=== PATIENT | male | born 1995 | race Caucasian/White ===

== ENCOUNTER 2017-07-17 09:19 | Emergency (ER) | payer OTHER ==
[~2017-07-17] VITALS: Ht 185.4 cm; Wt 86.0 kg
[~2017-07-17 09:19] MED LIST: IBUP-1277 PO; LEVO50TA PO; PENI-73 PO
[2017-07-17 09:26] VITALS: Ht 185.4 cm; Wt 86.0 kg
[2017-07-17] MEDS ORDERED: SODIUM CHLORIDE 0.9% 1000ML 1,000 ML IV STA (09:34)
[2017-07-17] MEDS ORDERED: ONDANSETRON INJ 2 MG/ML 2 ML VIAL IV STA ×2 (09:48→11:56)
[2017-07-17] MEDS ORDERED: SODIUM CHLORIDE 0.9% 1000ML 2,000 ML IV STA (09:49)
[2017-07-17 10:13] LABS: BASO % 0.1 %; BASO ABS # 0.02 K/uL (0-0.2); EOS % 0.1 %; EOS ABS # 0.01 K/uL (0-0.5); HEMOGLOBIN 15.1 g/dL (14.0-18.0); IG# 0.05 K/uL (0.00-0.02); LYMPH % 5.1 %; LYMPH ABS # 0.89 K/uL (1.2-3.4); MEAN CELL VOLUME 84.5 fL (80-100); MEAN CORPUSCULAR HEMOGLOBIN 29.7 pg (25-34); MEAN CORPUSCULAR HGB CONC 35.1 g/dl (32-36); MEAN PLATELET VOLUME 9.4 fL (7.4-10.4); MONO % 6.9 %; MONO ABS # 1.21 K/uL (0.11-0.59); NEUT % 87.5 %; NEUT ABS # 15.24 K/uL (1.4-6.5); PLATELET COUNT 262 K/uL (130-400); RED CELL DISTRIBUTION WIDTH CV 13.5 % (11.5-14.5); RED CELL DISTRIBUTION WIDTH SD 41.6 fL (36.4-46.3); WHITE BLOOD COUNT 17.42 K/uL (4.8-10.8)
[2017-07-17 10:32] LABS: ALBUMIN 3.8 gm/dl (3.4-5.0); ALT/SGPT 26 U/L (12-78); AST/SGOT 15 U/L (15-37); BLOOD UREA NITROGEN 15 mg/dl (7-18); CALCIUM 9.1 mg/dl (8.5-10.1); CARBON DIOXIDE 22 mmol/L (21-32); CREATININE 1.26 mg/dl (0.60-1.40); GLUCOSE 111 mg/dl (70-99); LIPASE 75 U/L (73-393); POTASSIUM 3.3 mmol/L (3.5-5.1); SODIUM 135 mmol/L (136-145)
[2017-07-17 10:43] LABS: ALKALINE PHOSPHATASE 104 U/L (45-117); TOTAL PROTEIN 8.5 gm/dl (6.4-8.2)
--- NOTE | 2017-07-17 11:13 | EMERGENCY ROOM VISIT NOTE ---
History Report prepared by Rossi: Aryan Matias Under the Supervision of: Dr. Tyler Umaña M.D. First contact with patient: 09:34 Chief Complaint: VOMITING Stated Complaint: STOMACH FLU Nursing Triage Summary: pt reports since saturday he has had nausea, vomitting and generalized pain. pt reports he was seen at [facility] yesterday and was told to come to ed if not getting any better. pt reports "i feel worse and i think i am just so dehydrated." History of Present Illness The patient is a 21 year old male who presents to the Emergency Room with complaints of multiple episodes of intermittent vomiting that began two days ago. He has a past medical history of a thyroid disorder and takes Levothyroxine. This weekend, the patient began to feel "weird," but did not have any symptoms at that time. A couple of days ago, the patient presented to [facility] to be evaluated. He was given a nausea medication and was discharged. However, the patient was so fatigued that he did not fill his prescription and went home to sleep. He has not been able to eat or drink anything without vomiting. He is also experiencing some abdominal cramping. He notes that he feels significantly dehydrated. This morning, the patient had a few episodes of short, sharp chest and ear pain, but is not experiencing it currently. Pt denies LOC, headache, fevers, chills, diaphoresis, visual changes , neck pain, breathing difficulties, back pain, melena, hematochezia, urinary symptoms, numbness, weakness, lymphadenopathy, rash, or other complaints. Source of History: patient Onset: two days ago Position: other (GI) Symptom Intensity: Multiple episodes Quality: other (Vomiting) Timing: intermittent Modifying Factors (Worsening): eating, drinking Associated Symptoms: + nausea, + abdominal pain (cramping), + fatigue Note: He feels dehydrated. Review of Systems See HPI for pertinent positives and negatives. A total of ten systems were reviewed and were otherwise negative. Family History Patient reports no known family medical history. Social History Smoking Status: Never Smoker Smokeless Tobacco Use: No Drug Use: none Marital Status: single Housing Status: lives with roommate Occupation Status: [employer] student Current/Historical Medications Scheduled Levothyroxine Sodium (Synthroid), 1 TAB PO DAILY Allergies Coded Allergies: No Known Allergies (Unverified , 07/17/17) Physical Exam Vital Signs Date Time Temp Pulse Resp B/P (MAP) Pulse Ox O2 Delivery O2 Flow Rate FiO2 07/17/17 14:53 38.1 77 18 139/75 97 07/17/17 14:18 38.2 76 16 143/72 96 Room Air 07/17/17 13:14 88 07/17/17 12:27 37.9 92 18 155/83 97 Room Air 07/17/17 10:57 98 18 157/78 97 Room Air 07/17/17 10:08 85 07/17/17 09:26 37.6 95 18 145/67 97 Room Air Physical Exam GENERAL: Awake, alert, uncomfortable-appearing, in no distress HENT: Normocephalic, atraumatic. Oropharynx reveals dry mucous membranes. EYES: Normal conjunctiva. Sclera non-icteric. NECK: Supple. No nuchal rigidity. FROM. No JVD. RESPIRATORY: Clear to auscultation. CARDIAC: Borderline tachycardic rate, normal rhythm. Extremities warm and well perfused. Pulses equal. ABDOMEN: Soft, non-distended. No tenderness to palpation. No rebound or guarding. No masses. RECTAL: Deferred. MUSCULOSKELETAL: Chest examination reveals no tenderness. The back is symmetrical on inspection without obvious abnormality. There is no CVA tenderness to palpation. No joint edema. LOWER EXTREMITIES: Calves are equal size bilaterally and non-tender. No edema. No discoloration. NEURO: Normal sensorium. No sensory or motor deficits noted. SKIN: No rash or jaundice noted. Medical Decision & Procedures ER Provider Diagnostic Interpretation: Radiology results as stated below per my review and radiologist interpretation: ABD/PELVIS IV CONTRAST ONLY CLINICAL HISTORY: 21 years-old Male presenting with vomiting, lower abd pain. TECHNIQUE: Multidetector CT of the abdomen and pelvis was performed after the administration of intravenous contrast. IV contrast: 100 mL of Optiray 320. A dose lowering technique was used consistent with the principles of ALARA (as low as reasonably achievable). COMPARISON: None. CT DOSE (mGy.cm): The estimated cumulative dose is 488.23 mGy.cm. FINDINGS: Pet Care Assistant topogram: Unremarkable. Lung bases: Polygonal solid peripheral 6 mm nodule at the posterior basal right lower lobe (series 3 image 29). Minimal subpleural nodularity at the left lower lobe likely atelectasis. Normal heart size. No pericardial or pleural effusion. Liver: Normal morphology. No liver lesion. Patent hepatic vasculature. Biliary: No intrahepatic or extrahepatic biliary ductal dilatation. Normal gallbladder. Pancreas: Normal. Spleen: Normal. Adrenal glands: Normal. Kidneys and ureters: Normal. No hydronephrosis. Bladder: Incompletely evaluated secondary to underdistention. Pelvic organs: Prostate and seminal vesicles normal. Bowel: Normal appendix. No bowel obstruction. No gross small bowel wall thickening or perienteric inflammatory change. Peritoneal cavity: No free fluid or intraperitoneal gas. Lymph nodes: No enlarged lymph nodes in the abdomen or pelvis. Vasculature: Aorta and IVC patent and normal in caliber. Abdominal wall: Normal. Musculoskeletal: Normal. IMPRESSION: 1. No acute intra-abdominal pathology. 2. Solid 6 mm right lower lobe pulmonary nodule. Follow-up per Elizabeth Society 2017 recommendations below. Please refer to below summary of Fleischner Society 2017 recommendations for follow-up of incidental CT nodules (H Jordin et al. Guidelines for management of incidental pulmonary nodules detected on CT images: From the Fleischner Society 2017. Radiology 2017; 284: 228-243.) SOLID NODULES Single nodule; size < 6 mm * Low risk patients: No routine follow-up * High risk patients: Optional CT at 12 months Single nodule; size 6-8 mm * Low risk patients: CT at 6-12 months, then consider CT at 18-24 months * High risk patients: CT at 6-12 months, then at 18-24 months Single nodule; size > 8 mm * Either low or high risk patients: Considered CT at 3 months, PET/CT, or tissue sampling Multiple nodules; size < 6 mm * Low risk patients: No routine follow up * High risk patients: Optional CT at 12 months Multiple nodules; size 6-8 mm * Low risk patients: CT at 3-6 months, then consider CT at 18-24 months * High risk patients: CT at 3-6 months, then at 18-24 months Multiple nodules; size > 8 mm * Low risk patients: CT at 3-6 months, then consider at 18-24 months * High risk patients: CT at 3-6 months, then at 18-24 months Note: These guidelines apply to incidental nodules. These guidelines do not apply to patients younger than 35 years, immunocompromised patients, or patients with cancer. * Low risk patients: Minimal or absent history of smoking and/or other known risk factors * High risk patients: History of smoking, exposure to other carcinogens, emphysema, fibrosis, upper lobe location, family history of lung cancer, etc. * If a nodule up to 8 mm is partly solid or is ground glass, further follow-up is required after 24 months to exclude possible slow growing adenocarcinoma. SUBSOLID NODULES Single ground-glass nodule * Nodule size < 6 mm: No routine follow-up * Nodule size > or = 6 mm: CT at 6-12 months to confirm persistence, then CT every 2 years until 5 years Single part-solid nodule * Nodule size < 6 mm: No routine follow-up * Nodules size > or = 6 mm: CT at 3-6 months to confirm persistence. If unchanged and solid component remains < 6 mm, annual CT should be performed for 5 years Multiple nodules * Nodule size < 6 mm: CT at 3-6 months. If stable, consider CT at 2 and 4 years. * Nodules size > or = 6 mm: CT at 3-6 months. Subsequent management based on the most suspicious nodule(s) Electronically signed by: Carlos A Torres M.D. 07/17/2017 1:18 PM Dictated Date/Time: 07/17/2017 1:13 PM Laboratory Results 07/17/17 09:54 Red Blood Count 5.09, Mean Corpuscular Volume 84.5, Mean Corpuscular Hemoglobin 29.7, Mean Corpuscular Hemoglobin Concent 35.1, Mean Platelet Volume 9.4, Neutrophils (%) (Auto) 87.5, Lymphocytes (%) (Auto) 5.1, Monocytes (%) (Auto) 6.9, Eosinophils (%) (Auto) 0.1, Basophils (%) (Auto) 0.1, Neutrophils # (Auto) 15.24, Lymphocytes # (Auto) 0.89, Monocytes # (Auto) 1.21, Eosinophils # (Auto) 0.01, Basophils # (Auto) 0.02 07/17/17 09:54 Test 07/17/17 09:54 07/17/17 11:08 White Blood Count 17.42 K/uL (4.8-10.8) Red Blood Count 5.09 M/uL (4.7-6.1) Hemoglobin 15.1 g/dL (14.0-18.0) Hematocrit 43.0 % (42-52) Mean Corpuscular Volume 84.5 fL (80-100) Mean Corpuscular Hemoglobin 29.7 pg (25-34) Mean Corpuscular Hemoglobin Concent 35.1 g/dl (32-36) Platelet Count 262 K/uL (130-400) Mean Platelet Volume 9.4 fL (7.4-10.4) Neutrophils (%) (Auto) 87.5 % Lymphocytes (%) (Auto) 5.1 % Monocytes (%) (Auto) 6.9 % Eosinophils (%) (Auto) 0.1 % Basophils (%) (Auto) 0.1 % Neutrophils # (Auto) 15.24 K/uL (1.4-6.5) Lymphocytes # (Auto) 0.89 K/uL (1.2-3.4) Monocytes # (Auto) 1.21 K/uL (0.11-0.59) Eosinophils # (Auto) 0.01 K/uL (0-0.5) Basophils # (Auto) 0.02 K/uL (0-0.2) RDW Standard Deviation 41.6 fL (36.4-46.3) RDW Coefficient of Variation 13.5 % (11.5-14.5) Immature Granulocyte % (Auto) 0.3 % Immature Granulocyte # (Auto) 0.05 K/uL (0.00-0.02) Anion Gap 10.0 mmol/L (3-11) Est Creatinine Clear Calc Drug Dose 103.0 ml/min Estimated GFR () 92.6 Estimated GFR (Non- 79.9 BUN/Creatinine Ratio 12.3 (10-20) Calcium Level 9.1 mg/dl (8.5-10.1) Total Bilirubin 0.8 mg/dl (0.2-1) Direct Bilirubin 0.2 mg/dl (0-0.2) Aspartate Amino Transf (AST/SGOT) 15 U/L (15-37) Alanine Aminotransferase (ALT/SGPT) 26 U/L (12-78) Alkaline Phosphatase 104 U/L (45-117) Troponin I < 0.015 ng/ml (0-0.045) Total Protein 8.5 gm/dl (6.4-8.2) Albumin 3.8 gm/dl (3.4-5.0) Lipase 75 U/L (73-393) Thyroid Stimulating Hormone (TSH) 1.270 uIu/ml (0.300-4.500) Urine Color DK YELLOW Urine Appearance CLEAR (CLEAR) Urine pH 8.5 (4.5-7.5) Urine Specific [place] 1.027 (1.000-1.030) Urine Protein NEG (NEG) Urine Glucose (UA) NEG (NEG) Urine Ketones 1+ (NEG) Urine Occult Blood NEG (NEG) Urine Nitrite NEG (NEG) Urine Bilirubin NEG (NEG) Urine Urobilinogen POS (NEG) Urine Leukocyte Esterase SMALL (NEG) Urine WBC (Auto) 1-5 /hpf (0-5) Urine RBC (Auto) 0-4 /hpf (0-4) Urine Hyaline Casts (Auto) 1-5 /lpf (0-5) Urine Epithelial Cells (Auto) 20-30 /lpf (0-5) Urine Bacteria (Auto) NEG (NEG) Laboratory results reviewed by me Medications Administered Medications (Trade) Dose Ordered Sig/Joaquín Route Start Time Stop Time Status Last Admin Dose Admin Ondansetron HCl (Zofran Inj) 4 mg NOW STAT IV 07/17/17 09:48 07/17/17 09:49 DC 07/17/17 09:58 4 MG Sodium Chloride 2,000 ml @ 999 mls/hr Q2H1M STAT IV 07/17/17 09:49 07/17/17 11:49 DC 07/17/17 09:58 999 MLS/HR Ketorolac Tromethamine (Toradol Inj) 15 mg NOW STAT IV 07/17/17 11:56 07/17/17 11:57 DC 07/17/17 12:16 15 MG Ondansetron HCl (Zofran Inj) 4 mg NOW STAT IV 07/17/17 11:56 07/17/17 11:57 DC 07/17/17 11:56 4 MG Acetaminophen (Tylenol Tab) 1,000 mg NOW STAT PO 07/17/17 14:34 07/17/17 14:35 DC 07/17/17 14:49 1,000 MG Promethazine HCl (Phenergan 25MG Home Pack) 1 homepack UD ONCE PO 07/17/17 14:45 07/17/17 14:46 DC 07/17/17 14:49 1 HOMEPACK ECG Indication: vomiting Rate (beats per minute): 65 Rhythm: sinus rhythm, other (with sinus arrhythmia) Findings: RBBB (incomplete), no acute ischemic change, no ectopy, other (LVH) Change: Patient's electrocardiogram was interpreted by me. ED Course 0934: The patient was evaluated in room B5. A complete history and physical exam was performed. 0934: Ordered Sodium Chloride 1000 ml @ 999 mls/hr IV 0948: Ordered Zofran Inj 4 mg IV 0949: Ordered Sodium Chloride 2000 ml @ 999 mls/hr IV 1156: Ordered Zofran Inj 4 mg IV, Toradol Inj 15 mg IV 1247: Upon reevaluation, the patient is feeling better. He is getting ready to go to radiology. 1434: Ordered Tylenol Tab 1000 mg PO 1445: Ordered Promethazine HCl 1 homepack PO 1455: I reevaluated the patient. Discussed results and discharge instructions: He verbalized understanding and agreement. The patient is ready for discharge. Medical Decision Triage Nursing notes reviewed and agree them. The patient's history was concerning for nausea, vomiting, and abdominal pain. Differential diagnosis: Etiologies such as gastroenteritis, food borne illness, infections, appendicitis , diverticulitis, inflammatory bowel disease, GI bleed, biliary pathology, as well as others were entertained. Physical examination findings: As above. Benign abdomen. No peritoneal findings. ER treatment provided: IV hydration 2 L NSS. Zofran 4 mg The patient was still having some symptoms. He was treated with an additional 4 mg of Zofran and 15 mg of Toradol On reassessment the patient felt better. Patient was tolerating p.o. intake. Diagnostics interpretation by me: ECG: Normal without ischemia or ectopy. No pericarditis. The labs revealed a moderate leukocytosis on CBC. Chemistry panel revealed slight hypokalemia. LFTs unremarkable. Troponin unremarkable. Imaging studies: CT scan as above Clinically the patient is doing well. He had vomiting. His generalized abdominal discomfort. He was hydrated. He was given 2 rounds of nausea medication and it is a pain medication. Prior to discharge he did have a slight elevation of his temperature and was treated with Tylenol. The patient was given a Phenergan home pack. He was given close follow-up instructions. He was informed about the 6 mm nodule and need for follow-up imaging. The patient indicated his understanding. I suspect a viral etiology to this. If he worsens in any way he will be back.I gave my usual and customary discussion regarding this issue. By the evaluation outlined above other emergent etiologies such as those listed in the differential, as well as others, were deemed relatively unlikely. The patient was educated about the findings as listed above. All questions were answered and the patient was pleased with the treatment. Return instructions were outlined and the patient was discharged in stable condition. The patient was referred to [facility] for follow-up for a recheck of the current condition. Medication Reconcilliation Current Medication List: was personally reviewed by me Blood Pressure Screening Patient's blood pressure: Elevated blood pressure Blood pressure disposition: Elevated BP felt to be situational Impression Primary Impression: Vomiting Additional Impressions: Fever Generalized abdominal pain Scribe Attestation The scribe's documentation has been prepared under my direction and personally reviewed by me in its entirety. I confirm that the note above accurately reflects all work, treatment, procedures, and medical decision making performed by me. Departure Information Dispostion Home / Self-Care Referrals [facility] Forms HOME CARE DOCUMENTATION FORM, IMPORTANT VISIT INFORMATION Patient Instructions My [facility] Additional Instructions VOMITING INSTRUCTIONS: Phenergan(promethazine) tablets 25mg: Take one every six hours as needed for nausea. Avoid alcohol, operating machinery or dangerous equipment, working on ladders or roofs, DRIVING, or situations where being under the influence may be dangerous. Ibuprofen(Motrin, Advil) may be used for fever or pain. Use 600mg every six hours as needed. Take with food. Avoid using more than 2400mg in a 24 hour period. Do not use 2400mg per day for more than three consecutive days without physician direction. Prolonged inappropriate use can lead to stomach upset or ulcers. (AND/OR) Acetaminophen(Tylenol) may be used for fever or pain. Use 1000mg every six hours as needed. Avoid using more than 4000mg in a 24 hour period. Rest and drink plenty of fluids as tolerated. Slow sips of water or sports drinks are recommended instead of large amounts all at once. Continue current medications. Once your stomach is settled start with a clear liquid diet (jello, soup broth, etc.) and then advance as tolerated. You should avoid full, heavy meals for about 24 hrs from the time your symptoms resolved. Return to the ER for persistent vomiting, fevers, abdominal pain, chest pains, difficulty breathing, black or bloody stools, worsening of your condition, or as needed. Follow up with [facility] the end of this week for a recheck of your current condition. Set a follow-up appointment for February for a repeat chest CT regarding the right lower lobe 6 mm pulmonary nodule. Problem Qualifiers
[2017-07-17] MEDS ORDERED: KETOROLAC TROMETHAMINE 30 MG/ML VIAL IV STA (11:56)
[2017-07-17] MEDS ORDERED: OPTIRAY 320 IV PRN (12:15)
--- NOTE | 2017-07-17 13:19 | DIAGNOSTIC IMAGING REPORT ---
ABD/PELVIS IV CONTRAST ONLY CLINICAL HISTORY: 21 years-old Male presenting with vomiting, lower abd pain. TECHNIQUE: Multidetector CT of the abdomen and pelvis was performed after the administration of intravenous contrast. IV contrast: 100 mL of Optiray 320. A dose lowering technique was used consistent with the principles of ALARA (as low as reasonably achievable). COMPARISON: None. CT DOSE (mGy.cm): The estimated cumulative dose is 488.23 mGy.cm. FINDINGS: Museum Director topogram: Unremarkable. Lung bases: Polygonal solid peripheral 6 mm nodule at the posterior basal right lower lobe (series 3 image 29). Minimal subpleural nodularity at the left lower lobe likely atelectasis. Normal heart size. No pericardial or pleural effusion. Liver: Normal morphology. No liver lesion. Patent hepatic vasculature. Biliary: No intrahepatic or extrahepatic biliary ductal dilatation. Normal gallbladder. Pancreas: Normal. Spleen: Normal. Adrenal glands: Normal. Kidneys and ureters: Normal. No hydronephrosis. Bladder: Incompletely evaluated secondary to underdistention. Pelvic organs: Prostate and seminal vesicles normal. Bowel: Normal appendix. No bowel obstruction. No gross small bowel wall thickening or perienteric inflammatory change. Peritoneal cavity: No free fluid or intraperitoneal gas. Lymph nodes: No enlarged lymph nodes in the abdomen or pelvis. Vasculature: Aorta and IVC patent and normal in caliber. Abdominal wall: Normal. Musculoskeletal: Normal. IMPRESSION: 1. No acute intra-abdominal pathology. 2. Solid 6 mm right lower lobe pulmonary nodule. Follow-up per Elizabeth Society 2017 recommendations below. Please refer to below summary of Fleischner Society 2017 recommendations for follow-up of incidental CT nodules (H Jordin et al. Guidelines for management of incidental pulmonary nodules detected on CT images: From the Fleischner Society 2017. Radiology 2017; 284: 228-243.) SOLID NODULES Single nodule; size < 6 mm * Low risk patients: No routine follow-up * High risk patients: Optional CT at 12 months Single nodule; size 6-8 mm * Low risk patients: CT at 6-12 months, then consider CT at 18-24 months * High risk patients: CT at 6-12 months, then at 18-24 months Single nodule; size > 8 mm * Either low or high risk patients: Considered CT at 3 months, PET/CT, or tissue sampling Multiple nodules; size < 6 mm * Low risk patients: No routine follow up * High risk patients: Optional CT at 12 months Multiple nodules; size 6-8 mm * Low risk patients: CT at 3-6 months, then consider CT at 18-24 months * High risk patients: CT at 3-6 months, then at 18-24 months Multiple nodules; size > 8 mm * Low risk patients: CT at 3-6 months, then consider at 18-24 months * High risk patients: CT at 3-6 months, then at 18-24 months Note: These guidelines apply to incidental nodules. These guidelines do not apply to patients younger than 35 years, immunocompromised patients, or patients with cancer. * Low risk patients: Minimal or absent history of smoking and/or other known risk factors * High risk patients: History of smoking, exposure to other carcinogens, emphysema, fibrosis, upper lobe location, family history of lung cancer, etc. * If a nodule up to 8 mm is partly solid or is ground glass, further follow-up is required after 24 months to exclude possible slow growing adenocarcinoma. SUBSOLID NODULES Single ground-glass nodule * Nodule size < 6 mm: No routine follow-up * Nodule size > or = 6 mm: CT at 6-12 months to confirm persistence, then CT every 2 years until 5 years Single part-solid nodule * Nodule size < 6 mm: No routine follow-up * Nodules size > or = 6 mm: CT at 3-6 months to confirm persistence. If unchanged and solid component remains < 6 mm, annual CT should be performed for 5 years Multiple nodules * Nodule size < 6 mm: CT at 3-6 months. If stable, consider CT at 2 and 4 years. * Nodules size > or = 6 mm: CT at 3-6 months. Subsequent management based on the most suspicious nodule(s) Electronically signed by: Carlos A Torres M.D. 07/17/2017 1:18 PM Dictated Date/Time: 07/17/2017 1:13 PM
[2017-07-17] MEDS ORDERED: ACETAMINOPHEN 500 MG TAB PO STA (14:34)
[2017-07-17] MEDS ORDERED: PHENERGAN 25MG HOMEPACK PO ONE (14:45)
[2017-07-17 14:53] VITALS: BP 139/75; PULSE 77; TEMP 38.1; O2SAT 97
== END 2017-07-17 14:55 | disposition home or self-care (01) ==
LOC: C.EDB 09:20
DX: R11.10 Vomiting, unspecified (principal); R50.9 Fever, unspecified; R10.84 Generalized abdominal pain